=== PATIENT | female | born 1980 | race Two or more races ===

== ENCOUNTER 2025-03-16 23:02 | Emergency (ER) | payer BC ==
[~2025-03-16] VITALS: Ht 165.1 cm; Wt 75.7 kg
[2025-03-16] MEDS ORDERED: METFORMIN HCL500 M3 (23:32)
[2025-03-16] MEDS ORDERED: JARDIANCE10 MG PO (23:33)
[2025-03-17] MEDS ORDERED: 0.9 % SODIUM CHLORIDE 500 ML IV ONE (01:30)
[2025-03-17 01:53] LABS: BASO % 1.3 % (0.1-1.2); EOS # 0.05 (0.04-0.54); EOS % 0.9 % (0.7-7.0); LYMPH # 1.77 (1.18-3.74); LYMPH % 31.8 % (19.3-53.1); MEAN PLATELET VOLUME 10.40 fl (9.4-12.4); MONO # 0.63 (0.24-0.82); MONO % 11.3 % (4.7-12.5); NEUT # 3.04 (1.56-6.13); NEUT % 54.5 % (34.0-71.1); RED CELL DISTRIBUTION WIDTH 12.9 % (11.6-14.4)
[2025-03-17 02:08] LABS: URINE APPEARANCE Clear; URINE BILIRRUBIN Negative (NEGATIVE); URINE BLOOD Negative; URINE COLOR Yellow; URINE KETONE Trace (NEGATIVE); URINE LEUKOCYTE Negative; URINE NITRATE Negative; URINE PROTEIN Negative (NEGATIVE); URINE UROBILINOGEN 0.2 E.U./dl
[2025-03-17 02:11] LABS: URINE BACTERIA 51.5 uL (0.0-1933); URINE EPITHELIAL CELLS 1.8 uL (0.0-38.8); URINE RBC 11.4 uL (0.0-20.8)
[2025-03-17 02:24] LABS: URINE CAST 0.29 uL (0.0-1.40); URINE GLUCOSE >=1000 MG/DL (NEGATIVE); URINE WBC 1.0 uL (0.0-23.2)
[2025-03-17 02:33] LABS: ALT/SGPT 41.0 U/L (12-78); AST/SGOT 23.0 U/L (15-37); BILIRUBIN TOTAL 0.28 mg/dL (0.3-1.2); BUN CREA RATIO 16.0 (7.0-25.0); CREATININE SERUM 0.76 mg/dL (0.55-1.02); GFR 83.06; GLOBULINA 3.1 G/DL (2.4-3.5); GLUCOSE FASTING 150.0 mg/dL (65-100); OSMOLALITY SERUM 284.0 MOSM/KG (275-295)
== END 2025-03-17 05:44 | disposition home or self-care (01) ==
LOC: ER 23:02
PROVIDERS: General Practice
DX: R42 Dizziness and giddiness (principal); Z86.39 Personal history of other endocrine, nutritional and metabolic disease; E11.9 Type 2 diabetes mellitus without complications; Z79.84 Long term (current) use of oral hypoglycemic drugs; Z91.018 Allergy to other foods